=== PATIENT | female | born 1955 | race Caucasian/White ===

== ENCOUNTER → 2016-08-31 | Outpatient (CLI) | payer OTHER ==
[~2016-08-31] MED LIST: BUPR150T73 PO; CELE100C PO; CETI10TA18 PO; CHOL200024 PO; FLUT9.9S NS; LEVO175T5 PO; LISI1TAB7 PO; TRAM50TA2 PO
[2016-08-31 11:46] LABS: BLOOD UREA NITROGEN 16 mg/dL (7-18)
[2016-08-31 11:49] LABS: ASPARTATE AMINO TRANSFERASE 9 U/L (15-37)
== END | disposition home or self-care (01) ==
LOC: STAR 10:31
PROVIDERS: ATTEND Otolaryngology
DX: Z01.818 Encounter for other preprocedural examination (principal); J32.2 Chronic ethmoidal sinusitis; J32.0 Chronic maxillary sinusitis
CPT/HCPCS: 36415; 80053

== ENCOUNTER 2016-09-08 07:40 | Day surgery (SDC) | payer OTHER ==
[~2016-09-08] VITALS: Ht 180.3 cm; Wt 123.5 kg
[2016-09-08 08:28] VITALS: BP 120/84
[2016-09-08] MEDS ORDERED: FENTANYL PF 250 MCG/5ML ONE (09:26)
[2016-09-08] MEDS ORDERED: MIDAZOLAM 1 MG/ML, 2ML ONE (09:26)
[2016-09-08] MEDS ORDERED: LIDOCAINE 1%-EPI 1:100K, 30ML ONE (09:49)
[2016-09-08] MEDS ORDERED: OXYMETAZOLINE NASAL SPRAY 0.05%, 15ML ONE ×2 (09:49→11:29)
[2016-09-08] MEDS ORDERED: THROMBIN 5,000 UNIT VIAL TP ONE (09:49)
[2016-09-08] MEDS ORDERED: BACITRACIN OINT 500U/GM, 15 GM ONE (09:49)
[2016-09-08] MEDS ORDERED: OXYcodone 5 MG/5 ML ORAL.SOL UDC PO PRN (11:00)
[2016-09-08] MEDS ORDERED: FENTANYL PF 100 MCG/2ML IV PRN (11:00)
[2016-09-08] MEDS ORDERED: LABETALOL 5MG/ML, 20ML IV PRN (11:00)
[2016-09-08] MEDS ORDERED: MEPERIDINE/PF 25MG/0.5ML IVPush PRN (11:00)
[2016-09-08] MEDS ORDERED: hydrALAzine 20 MG/ML, 1ML IV PRN (11:00)
[2016-09-08] MEDS ORDERED: ONDANSETRON 2MG/ML, 2ML IVPush PRN (11:00)
[2016-09-08] MEDS ORDERED: MIDAZOLAM 1 MG/ML, 2ML IV PRN (11:00)
[2016-09-08] MEDS ORDERED: PROMETHAZINE 25 MG/ML, 1ML IV PRN (11:00)
[2016-09-08] MEDS ORDERED: HYDROmorphone 1 MG/ML, 1ML IV PRN (11:00)
[2016-09-08] MEDS ORDERED: METOPROLOL 1 MG/ML, 5ML IV PRN (11:00)
[2016-09-08] MEDS ORDERED: ALBUTEROL SULFATE 2.5 MG/3 ML NPPB PRN (11:00)
[2016-09-08] MEDS ORDERED: EPHEDRINE 50 MG/ML, 1ML IVPush PRN (11:00)
[2016-09-08] MEDS ORDERED: ACETAMINOPHEN 325 MG TABLET PO PRN (11:00)
[2016-09-08] MEDS ORDERED: OXYcodone 5 MG/5 ML ORAL.SOL UDC ONE (11:28)
[2016-09-08] MEDS ORDERED: NEOSTIGMINE 1 MG/ML, 10ML ONE (16:21)
[2016-09-08] MEDS ORDERED: ROCURONIUM 10 MG/ML ONE (16:21)
[2016-09-08] MEDS ORDERED: ONDANSETRON 2MG/ML, 2ML ONE (16:21)
[2016-09-08] MEDS ORDERED: CEFAZOLIN 1,000 MG ONE (16:21)
[2016-09-08] MEDS ORDERED: DEXAMETHASONE 4 MG/ML, 1ML ONE (16:21)
[2016-09-08] MEDS ORDERED: PROPOFOL 10 MG/ML, 20ML ONE (16:21)
[2016-09-08] MEDS ORDERED: GLYCOPYRROLATE 0.2MG/1ML ONE (16:21)
[2016-09-08] MEDS ORDERED: SUCCINYLCHOLINE 20 MG/ML, 10ML ONE (16:21)
== END 2016-09-08 13:10 | disposition home or self-care (01) ==
LOC: OUT 07:40
PROVIDERS: ATTEND Otolaryngology
DX: J32.0 Chronic maxillary sinusitis (principal); J32.2 Chronic ethmoidal sinusitis; J34.2 Deviated nasal septum; J33.8 Other polyp of sinus; I10 Essential (primary) hypertension; F17.210 Nicotine dependence, cigarettes, uncomplicated; F32.9 Major depressive disorder, single episode, unspecified
CPT/HCPCS: 31254; 31267; 88304; 88305; 88311; J0330; J0690; J1100; J2250; J2405; J2704; J2710; J3010; J3490